=== PATIENT | female | born 1955 | race Caucasian/White ===

== ENCOUNTER → 2020-04-07 10:47 | Outpatient (CLI) | payer MEDICARE, SELFPAY ==
[2020-04-08 14:02] LABS: COVID19 Sendout Not Detected (Not Detect)
== END ==
PROVIDERS: Visit Provider Physician Assistant
DX: Z11.59 Encounter for screening for other viral diseases (principal)
CPT/HCPCS: 87635

== ENCOUNTER 2020-04-10 09:29 | Day surgery (SDC) | payer MEDICARE, SELFPAY ==
[2020-04-10] VITALS (7 sets, daily range): BP systolic 101–142; BP diastolic 52–71; PULSE 75–91; RESP 13–15; TEMP 36.5–36.8; O2SAT 95–100; BMI 21.5
--- NOTE | 2020-04-10 09:01 | PM.HP.1 ---
History of Present Illness History of Present Illness Date Patient Seen: 04/10/20 Chief complaint: SDC Narrative: Cirrhosis with history of bleeding rule out esophageal varices Meds Home Medications and Allergies Home Medications Medication Instructions Recorded Confirmed Type Lasix 40 mg PO DAILY 04/10/20 04/10/20 History amitriptyline 10 mg PO BEDTIME 04/10/20 04/10/20 History spironolactone [Aldactone] 25 mg TID 04/10/20 04/10/20 History Allergies Allergy/AdvReac Type Severity Reaction Status Date / Time Penicillins Allergy Severe Anaphylaxis Verified 04/10/20 11:08 Exam Narrative Exam Narrative: Oropharynx free of lesions Chest clear to auscultation percussion Cardiac exam reveals no S3 or murmur Assessment & Plan Assessment & Plan narrative: 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 Rule out esophageal varices. Risks, benefits, alternatives to procedure have been explained. Possible banding may take place. Further recommendations will follow.
[2020-04-10] MEDS: SODIUM CHLORIDE 0.9% 1,000 ML 42 ML IV (11:19)
--- NOTE | 2020-04-10 12:18 | PM.OP.ENDO ---
Operative Date/Time/Diagnoses Date of procedure: 04/10/20 Pre-op diagnosis: See indication and findings Procedure & Clinicians Study performed: EGD Same procedure as scheduled: Yes Indications: Cirrhosis rule out esophageal varices Surgeon: Lisandro Camargo Procedure Notes Procedure in detail: After informed consent was obtained patient was placed in left lateral decubitus position. The video upper scope placed into the oropharynx and with the patient's help swelled esophagus. The esophagus stomach and duodenum were carefully examined. On withdrawal. Retroflexed view the GE junction was performed. The scope was removed. The patient of the procedure well. Blood loss none Complications none Sedation Total sedation time 10 minutes Fentanyl and 50 mg Versed 7 mg IV titration Findings 1. Three columns of trace esophageal varices in the distal esophagus. 2. Portal hypertensive gastropathy with a few hematin flecks seen 3. Normal duodenal bulb and sweep Mireya will need follow-up EGD in 1 year to assess her esophageal varices.
[2020-04-10] MEDS: MIDAZOLAM 5 MG/5 ML VIAL IV (12:23)
[2020-04-10] MEDS: fentaNYL 250 MCG/5 ML INJ IV (12:23)
== END 2020-04-10 13:05 | disposition home or self-care (01) ==
PROVIDERS: PCP Family Medicine; Referring Provider Internal Medicine Gastroenterology; Visit Provider Internal Medicine Gastroenterology
PROC: 0DJ08ZZ Inspection of Upper Intestinal Tract, Via Natural or Artificial Opening Endoscopic (ICD-10-PCS; CPT 43235; principal; 2020-04-10 11:30)
DX: I85.10 Secondary esophageal varices without bleeding (principal); K76.6 Portal hypertension; K31.89 Other diseases of stomach and duodenum; F10.21 Alcohol dependence, in remission; I10 Essential (primary) hypertension; J45.909 Unspecified asthma, uncomplicated; K72.90 Hepatic failure, unspecified without coma
CPT/HCPCS: 43235; J2250; J3010